=== PATIENT | female | born 1965 | race Caucasian/White ===

== ENCOUNTER → 2024-07-10 06:57 | Outpatient (BNVA) | payer OTHER, SELFPAY | PROVIDERS: PCP Nurse Practitioner Family; Visit Provider Podiatrist Foot & Ankle Surgery | DX: M79.671 Pain in right foot (principal); M20.11 Hallux valgus (acquired), right foot | CPT/HCPCS: 73630 ==

== ENCOUNTER 2024-09-24 06:16 | Day surgery (SDC) | payer OTHER, SELFPAY ==
[2024-09-24] VITALS (13 sets, daily range): BP systolic 148–193; BP diastolic 79–102; PULSE 62–70; RESP 15–16; TEMP 36.4–36.8; O2SAT 96–100; BMI 31.2
--- NOTE | 2024-09-24 | XR_ITS ---
WS: [id number] XR foot RT 2V [id number] REASON FOR EXAM: OR PICS FINDINGS: Osteotomy with screw fixation of the first metatarsal. Surgical appliances are intact and in proper position and alignment. Osteotomy fragments are in proper position and alignment. XR/XR foot RT 2V [id number] IMPRESSION: Osteotomy first metatarsal without abnormality as above.
[2024-09-24] MEDS: sodium chloride 0.9% 1,000 ML 30 ML IV (08:12)
[2024-09-24] MEDS: CELEcoxib 200 mg Capsule 400 MG PO (08:16)
[2024-09-24] MEDS: gabapentin 300 mg Capsule PO (08:16)
--- NOTE | 2024-09-24 08:43 | ANES.PREANE2 ---
Pre-Anesthetic Assessment Height/Weight: Height 5 ft 2 in Weight 171 lb Temp Pulse Resp BP Pulse Ox O2 Del Method 98.3 F 69 16 176/102 99 Room Air 09/24/24 07:36 09/24/24 07:36 09/24/24 07:36 09/24/24 07:36 09/24/24 07:36 09/24/24 07:55 Preop Diagnosis: Right hallux valgus Operation Date: 09/24/24 09:05 Proposed Procedures p mily/willie bunionectomy(Right) - YULIANA HernándezM Was Beta Amber taken within 24 hours: Yes Was Clonidine taken within 24 hours: Yes Last intake: Intake Last Liquid Date 09/23/24 Last Liquid Time 22:00 Last Solid Date 09/23/24 Last Solid Time 18:30 Social No alcohol and No tobacco Exam alert, oriented x 3, clear to auscultation bilaterally and regular rate & rhythm Airway Submandibular: within normal limits Cervical ROM: within normal limits Mallampati: Class II Comments: Comments: Multiple missing teeth, denies any loose Anesthetic Plan ASA status: 3 Anesthesia: General Other: No prior issues with anesthesia NPO since yesterday Patient has a history of hypertension, on amlodipine, clonidine, lisinopril and propranolol. Preop BP 176/102 Patient has a pacemaker in place. Cardiac clearance received from [facility] in [place] Patient had stent x 2 placed August 2023 Patient states that she is able to perform ADLs but is limited secondary to pain, pain pump in place, this has fentanyl and Marcaine in it. Will turn off pain pump prior to procedure Plan for general anesthesia with local via surgeon Medications/Allergies Home Medications ?Medication ?Instructions ?Recorded ?Confirmed ?Last Taken ?Type amlodipine 5 mg tablet (Norvasc) 5 mg PO DAILY 09/10/24 09/20/24 09/06/24 History aspirin 81 mg tablet,delayed 81 mg PO DAILY 09/10/24 09/20/24 10/11/23 History release (Adult Aspirin Regimen) clonidine HCl 0.3 mg tablet 0.3 mg PO ONCE 09/10/24 09/20/24 09/17/24 History gabapentin 300 mg capsule 300 mg PO BID 09/10/24 09/20/24 09/23/24 History lisinopril 20 mg tablet 20 mg PO DAILY 01/09/20/24 09/23/24 History pantoprazole 40 mg granules 40 mg PO DAILY 09/10/24 09/20/24 09/23/24 History delayed-release for susp in packet (Protonix) propranolol 20 mg tablet 10 mg PO BID 09/10/24 09/20/24 09/23/24 History tizanidine 4 mg capsule 4 mg PO TID PRN Muscle Spasm 09/10/24 09/20/24 09/23/24 History Allergies Allergy/AdvReac Type Severity Reaction Status Date / Time demerol Allergy breathing Uncoded 09/10/24 12:34 issues Current Medications Generic Name Dose Route Start Last Admin Trade Name Freq PRN Reason Stop Dose Admin Sodium Chloride 1,000 mls @ 30 mls/hr 09/24/24 06:45 09/24/24 08:12 Sodium Chloride 0.9% IV 09/25/24 06:44 30 mls/hr .Q24H BAN Administration PFSH Anesthesia Social History Smoking and tobacco/nicotine status: never used tobacco/nicotine Data Anesthesia Cardiac Studies: No Data to Display
[2024-09-24] MEDS: fentaNYL 50 mcg/mL INJ 2mL IVP ×2 (08:47→10:24)
--- NOTE | 2024-09-24 08:52 | W.PM.OPSUD ---
Surgery/Procedure H&P Update DATE OF PROCEDURE: September 24, 2024 DATE H&P PERFORMED: 09/10/24 H&P UPDATE INFORMATION: I have reviewed H&P completed within last 30 days, I have examined patient prior to procedure, No changes to prior documentation and H&P is in [facility] [place] on date indicated PREOP DIAGNOSIS: Right hallux valgus PLANNED PROCEDURE: Operation Date: 09/24/24 09:05 Proposed Procedures p mily/willie bunionectomy(Right) - Joseph Chaney DPM
[2024-09-24] MEDS: ceFAZolin 2,000 mg SDV 2000 MG IVP (08:57)
[2024-09-24] MEDS: BUPivacaine 0.5% INJ 30 mL INJECTION (09:27)
--- NOTE | 2024-09-24 10:05 | W.PM.BPON ---
Date of procedure: 09/24/2024 Surgeon name: Hannah AnnPJavy Optical Engineering Manager(s) name(s): Annie DELANEY Procedure(s) performed: Right foot Logan bunionectomy Description of findings: Right foot hallux valgus Estimated blood loss: 2 cc Tourniquet time: 43 minutes Specimen(s) removed: None Post-operative diagnosis: Right foot hallux valgus
--- NOTE | 2024-09-24 10:07 | P.OP_ITS ---
Operative Report Date of procedure: September 24, 2024 Surgeon: Joseph Chaney DPM Procedure: Date of procedure: 09/24/2024 Pre-op diagnosis: Right foot hallux valgus Post-op diagnosis: Same Post-op findings: Right foot hallux valgus Procedure done: Right foot Logan bunionectomy CPT 46994 Implants: One 4.0 and one 3.5 beveled compression screw from [employer] Specimens removed: None Surgeon: Dr. Joseph Chaney DPM Elevator Troubleshooter: Annie DELANEY Estimated blood loss: 2 cc Tourniquet time: 43 minutes Complications: None Patient is a 59-year-old female that has a history of right foot hallux valgus. The patient has had the aforementioned chief complaint for some time. Conservative treatment measures have been attempted and the patient has opted for surgical intervention at this time. A lengthy discussion regarding the procedure, including risks and complications has been had with the patient and is noted in the recent clinic note. Written and verbal consent have been obtained. All patient questions have been answered to the patient?s satisfaction. No written or verbal guarantees have been given or implied. The patient has been NPO since midnight. The history has been reviewed and the history and physical is current. The signed consent was confirmed and placed in the patient chart. Patient imaging has been reviewed and is consistent with the diagnosis. Under mild sedation, the patient was brought into the operating room and placed on the table in the supine position. IV antibiotics were given by the anesthesia team as preoperative surgical prophylaxis. IV sedation was then performed by the anesthesiateam. A pneumatic tourniquet was then placed about the right thigh. A local field block was performed using 0.5% Marcaine plain. The operative extremity was then prepped and draped in the usual fashion. The extremity was then elevated and exsanguinated before the tourniquet was inflated to 325 mmHg. After inflation, the following procedure was then performed. Attention was directed to the right foot where a #15 blade was used to make a stab incision at the level of the first metatarsal neck. Dissection was carried out dorsally and plantarly at the level of the first metatarsal neck. Next a Gaye bur was inserted into this incision and a transverse osteotomy was made through the neck of the first metatarsal. The capital fragment of first metatarsal was then rotated in the frontal plane to the appropriate anatomic position and translated laterally in the transverse plane to the appropriate anatomic position to reduce the 1?2 intermetatarsal angle. With appropriate positioning to temporary guidewires were driven from proximal medial to distal lateral across the osteotomy site. Stab incision was made at the insertion of these wires before cannulated drill system was used to drill over the wires in preparation for permanent fixation. A 4.0 mm and 3.5 mm bevel compression screw from [employer] were then inserted over the wires and driven across the osteotomy site. Good positioning of the screws was visualized clinically as well as on C-arm imaging. Reduction of hallux valgus deformity was noted. Good positioning of the hallux on C-arm imaging as well as clinically was noted. It was determined the Mary osteotomy was not warranted for this procedure. Incision sites were irrigated with copious amounts of sterile saline before attention was directed to closure. Skin was closed with 4-0 nylon in horizontal mattress fashion. Tourniquet was let down and good hyperemic response was noted to all digits of the right foot. Incision sites were dressed with Xeroform, 4 x 4 gauze, Kerlix, Aries. Patient was placed in a cam boot and told to minimally weight-bear as tolerated The patient tolerated the procedure and anesthesia well and without complication. The patient was transported from the operating room to the recovery room with vital signs stable and vascular status intact to all digits of the right foot. The patient was given both written and verbal instructions to remain minimally weightbearing in cam boot to the operative extremity, to keep dressings/splint clean, dry and intact and to take pain medication as directed. The patient will follow-up in the outpatient setting at their scheduled appointment. The patient was discharged with my personal number and was instructed to call if any questions or issues should arise. They were discharged home once anesthesia criteria was met.
--- NOTE | 2024-09-24 12:10 | ANE.PACU2 ---
Inpatient post-anesthesia follow up: Airway intact: Yes Vital signs: Temperature 97.9 F Pulse Rate 64 Respiratory Rate 16 Blood Pressure 148/89 Pulse Oximetry 96 Oxygen Delivery Me thod Room Air Oxygen Flow Rate Fraction of Inspir ed Oxygen Hydration adequate: Yes Nausea and vomiting: No Pain level: 1 Mental status: Baseline
== END 2024-09-24 12:10 | disposition home or self-care (01) ==
PROVIDERS: PCP Nurse Practitioner Family; Visit Provider Podiatrist Foot & Ankle Surgery
PROC: (CPT 28296; principal; 2024-09-24 08:55)
DX: M20.11 Hallux valgus (acquired), right foot (principal); I10 Essential (primary) hypertension; Z79.899 Other long term (current) drug therapy; Z95.5 Presence of coronary angioplasty implant and graft; Z79.82 Long term (current) use of aspirin; Z88.5 Allergy status to narcotic agent; Z95.0 Presence of cardiac pacemaker
CPT/HCPCS: 28296; 73620; 76000; C1713 ×2; J0690; J1100; J2250; J2405; J2704; J3010; J3490; J7030

== ENCOUNTER → 2024-10-08 15:35 | Outpatient (BNVA) | payer OTHER, SELFPAY | PROVIDERS: PCP Nurse Practitioner Family; Visit Provider Podiatrist Foot & Ankle Surgery | DX: M20.11 Hallux valgus (acquired), right foot (principal); Z98.890 Other specified postprocedural states | CPT/HCPCS: 73630 ==

== ENCOUNTER → 2024-10-22 15:01 | Outpatient (BNVA) | payer OTHER, SELFPAY | PROVIDERS: PCP Nurse Practitioner Family; Visit Provider Podiatrist Foot & Ankle Surgery | DX: M20.11 Hallux valgus (acquired), right foot (principal); Z98.890 Other specified postprocedural states | CPT/HCPCS: 73630 ==

== ENCOUNTER → 2024-12-03 14:46 | Outpatient (BNVA) | payer OTHER, SELFPAY | PROVIDERS: PCP Nurse Practitioner Family; Visit Provider Podiatrist Foot & Ankle Surgery | DX: M79.671 Pain in right foot (principal); Z98.890 Other specified postprocedural states | CPT/HCPCS: 73630 ==

== ENCOUNTER 2025-01-15 11:04 | Outpatient (CLI) | payer OTHER, SELFPAY | END 2025-01-15 11:05 | disposition home or self-care (01) | LOC: SPT 11:05 | PROVIDERS: PCP Nurse Practitioner Family; Visit Provider Podiatrist Foot & Ankle Surgery | DX: Z47.89 Encounter for other orthopedic aftercare (principal); Z98.890 Other specified postprocedural states; M79.673 Pain in unspecified foot | CPT/HCPCS: L3030 ==